=== PATIENT | female | born 1975 | race African-American/Black ===

== ENCOUNTER 2016-09-17 17:53 | Emergency (ER) | payer OTHER ==
[2016-09-17 17:57] VITALS: BP 143/88; BMI 33.3
--- NOTE | 2016-09-17 18:23 | DR.GENAD ---
HPI - PCP Primary Care Physician: SULEMAN - HPI Comment HPI Comment: PATIENT IS WHO IS 29 WEEKS PRESENT TO ED BECAUSE SHE IS NOT FEELING MOVEMENT ALL DAY LONG. HAVE BLADDER PRESSURE BUT NO PAIN OR VAGINAL DISCHARGE OR BLEEDING. SHE WAS RECENTLY IN [facility] FOR EVALUATION. BABY WAS POSITIVE FOR DOWN SYNDROME. NO OTHER PROBLEMS WERE NOTED. MOVEMENT STOP TODAY SUDDENLY TODAY. - Complaint/Symptoms Chief Complaint Doctors Comments: NO MOVEMENT FELT TODAY. Chief Complaint:: PT. STATES SHE IS 6 MONTHS AND SHE HASN'T FELT HER BABY MOVE ALL DAY. PT. STATES SHE CAN FEEL SOMETHING "BALLING UP" BUT THE BABY ISN'T KICKING. PT. DENIES PAIN, VAGINAL BLEEDING, OR SPOTTING. - Nurses notes reviewed Nurses Notes Review: Yes - Source History Provided: Patient - Mode of Arrival Mode of Arrival: Ambulatory - Timing Onset of Chief Complaint: 09/17/16 Came on: Suddenly - Duration Duration: Constant Duration: Hours - Severity Severity: Moderate PMH - PMH Past Medical History: Yes Past Medical History: Hypertension Past Surgical History: No Surgical History: No History - Family History History of Family Medical Conditions: Yes Family Medical History: Diabetes Mellitus, Hypertension - Social History Does patient currently use any type of tobacco product: No Have you used tobacco products in the last 12 months: No Type of Tobacco Use: None Does any household member use tobacco: No Alcohol Use: None Do you use any recreational Drugs:: No Lives With: Family Lives Where: Home - infectious screening In the last 2 months have you had wt loss of >10#?: NO Have you had fever, night sweats or hemotysis?: No Have you traveled outside the country in the last 6 months?: No Isolation: Standard ROS - Review of Systems Constitutional: No Symptoms Reported Eyes: No Symptoms Reported ENTM: No Symptoms Reported Respiratoy: No Symptoms Reported Cardiovascular: No Symptoms Reported Gastrointestinal/Abdominal: Other (NO MOVEMENT FELT TODAY.) Genitourinary: Other (BLADDER PRESSURE) Neurological: No Symptoms Reported Musculoskeletal: No Symptoms Reported Integumentary: No Symptoms Reported Hematologic/Lymphatic: No Symptoms Reported Endocrine: No Symptoms Reported All Other Systems: Reviewed and Negative PE - Vital Signs Vitals: Temperature 98.1 F Pulse Rate 95 Respiratory Rate 16 Blood Pressure 143/88 O2 Sat by Pulse Oximetry 100 - General Limitations: No Limitations General Appearance: Alert - Head Head Exam: Normal Inspection - Eyes Eye exam: Normal Appearance - ENT ENT Exam: Normal External Ear Exam External Ear Exam: Normal External Inspection TM/Canal Exam: Bilateral Normal Nose Exam: Normal Nose Exam Mouth Exam: Normal Inspection Throat Exam: Normal Inspection - Neck Neck Exam: Trachea Midline - Respiratory Respiratory Exam: Normal Lung Sounds Bilat Respiratory Exam: Bilateral Clear to Auscultation - Cardiovascular Cardiovascular Exam: Regular Rate, Normal Rhythm, Normal Heart Sounds - Abdominal Exam Abdominal Exam: Normal Bowel Sounds, Soft. negative: Tenderness Abdominal Tenderness: Other (FHT ABSENT.) - Extremities Extremities Exam: Normal Inspection - Back Back Exam: Normal Inspection - Neurologic Neurological Exam: Alert, Oriented X3 - Psychiatric Psychiatric Exam: Anxious - Skin Skin Exam: Normal Color MDM - Additional Information Additional Information Obtained From: Family - Differential Diagnosis Differential Diagnosis: DEMISE, MISCARRIAGE Course - Treatment Treatment: SEE ORDERS - Consultation Consultation Comments: DR. MELENDEZ DISCUSS PATIENT WITH NURSE. PATIENT TO BE DISCHARGE HOME AND RETURN IN AM FOR LABOR INDUCTION. - Education/Counseling Education/Counseling: Patient, Family Educated On: Diagnosis, Needs for Follow Up ROR - Labs Reviewed Laboratory Results Reviewed?: Yes Result Diagrams: 09/17/16 20:55 09/17/16 20:55 Laboratory: WBC 9.2 X10^3/uL (3.6-10.0) 09/17/16 20:55 RBC 4.12 X10^6/uL (3.5-5.4) 09/17/16 20:55 Hgb 10.7 g/dL (12.0-16.0) L 09/17/16 20:55 Hct 33.2 % (36.0-47.0) L 09/17/16 20:55 MCV 80.6 fL (80.0-100.0) 09/17/16 20:55 MCH 26.0 pg (27.0-34.0) L 09/17/16 20:55 MCHC 32.2 g/dL (33.0-35.0) L 09/17/16 20:55 RDW 14.7 % (11.6-16.5) 09/17/16 20:55 Plt Count 270 X10^3/uL (150.0-450.0) 09/17/16 20:55 MPV 7.6 fL (7.4-11.0) 09/17/16 20:55 Neut % 70.8 % (42.0-75.0) 09/17/16 20:55 Lymph % 21.6 % (21.0-51.0) 09/17/16 20:55 [place] % 6.1 % (0.0-13.0) 09/17/16 20:55 Eos % 1.3 % (0.9-2.9) 09/17/16 20:55 Baso % 0.2 % (0.2-1.0) 09/17/16 20:55 Neut # 6.5 x10^3/uL (2.2-4.8) H 09/17/16 20:55 Lymph # 2.0 X10^3/uL (1.3-2.9) 09/17/16 20:55 [place] # 0.6 x10^3/uL (0.3-0.8) 09/17/16 20:55 Eos # 0.1 x10^3/uL (0.0-0.2) 09/17/16 20:55 Baso # 0.0 X10^3/uL (0.0-0.1) 09/17/16 20:55 Absolute Nucleated RBC 0.1 /100WBC 09/17/16 20:55 Sodium 139 mmol/L (136-145) 09/17/16 20:55 Corrected Sodium TNP 09/17/16 20:55 Potassium 3.9 mmol/L (3.5-5.1) 09/17/16 20:55 Chloride 106 mmol/L (98-107) 09/17/16 20:55 Carbon Dioxide 24.4 mmol/L (21-32) 09/17/16 20:55 BUN 4 mg/dL (7-18) L 09/17/16 20:55 Creatinine 0.50 mg/dL (0.55-1.02) L 09/17/16 20:55 Est GFR (MDRD) Af Amer > 60 (>60) 09/17/16 20:55 Est GFR (MDRD) Non-Af > 60 (>60) 09/17/16 20:55 Glucose 75 mg/dL (65-99) 09/17/16 20:55 Calcium 8.9 mg/dL (8.5-10.1) 09/17/16 20:55 Specimen Type Clean catch urine 09/17/16 18:08 Urine Color Pale yellow (YELLOW) 09/17/16 18:08 Urine Appearance Clear (CLEAR) 09/17/16 18:08 Urine pH 7.0 (5.0 - 8.0) 09/17/16 18:08 Ur Specific [place] 1.010 (1.000-1.030) 09/17/16 18:08 Urine Protein Negative (NEGATIVE) 09/17/16 18:08 Urine Glucose (UA) Negative (NEGATIVE) 09/17/16 18:08 Urine Ketones Negative (NEGATIVE) 09/17/16 18:08 Urine Occult Blood Negative (NEGATIVE) 09/17/16 18:08 Urine Nitrite Negative (NEGATIVE) 09/17/16 18:08 Urine Bilirubin Negative (NEGATIVE) 09/17/16 18:08 Urine Urobilinogen Normal (NORMAL) 09/17/16 18:08 Ur Leukocyte Esterase Negative (NEGATIVE) 09/17/16 18:08 Urine RBC None seen /HPF (NEGATIVE) 09/17/16 18:08 Urine WBC None seen /HPF (NEGATIVE) 09/17/16 18:08 Ur Squamous Epith Cells Moderate /HPF (NEGATIVE) 09/17/16 18:08 Urine Bacteria Trace /HPF (NEGATIVE) 09/17/16 18:08 Ur Culture Indicated? No/not indicated 09/17/16 18:08 RPR Nonreactive (NONREACTIVE) 09/17/16 20:55 Blood Type O POSITIVE 09/17/16 20:55 Antibody Screen Negative 09/17/16 20:55 - XRAY XRAY Interpreted by: Radiologist XRAY Findings: REPORT DISCUSS WITH PATIENT. - Diagnosis Discharge Problem: Miscarriage, demise - Discharge Plan Condition: Stable - Follow ups/Referrals Follow ups/Referrals: SIMRAN SHELL [Primary Care Provider] - 1 day - Instructions Instructions: Miscarriage, [id number], Abdominal or Pelvic Ultrasound, Easy- to-Read, Pelvic Rest Additional Instructions: RETURN IN AM.
[2016-09-17 18:32] LABS: BILIRUBIN,URINE NEGATIVE (NEGATIVE); BLOOD/HEMOGLOBIN,URINE NEGATIVE (NEGATIVE); GLUCOSE, URINE NEGATIVE (NEGATIVE); KETONES,URINE NEGATIVE (NEGATIVE); LEUKOCYTE ESTERASE ,URINE NEGATIVE (NEGATIVE); NITRITES,URINE NEGATIVE (NEGATIVE); PROTEIN,URINE NEGATIVE (NEGATIVE); UROBILINOGEN,URINE NORMAL (NORMAL)
[2016-09-17 18:39] LABS: APPEARANCE,URINE CLEAR (CLEAR); BACTERIA,URINE TRACE /HPF (NEGATIVE); COLOR,URINE PALE YELLOW (YELLOW); RBC,URINE NONE SEEN /HPF (NEGATIVE); SQUAMOUS EPITHELIAL CELL,UR MODERATE /HPF (NEGATIVE)
--- NOTE | 2016-09-17 19:14 | US ---
HISTORY: viability Study: Ob sonogram, limited Comparison: None Technique: Multiple grayscale sonographic images were obtained. Findings: There is a single intrauterine gestation in vertex presentation. The placenta is fundal and posterio r. Biparietal diameter 6.7 centimeters corresponding to 27 weeks. Head circumference 25.24 centimeters corresponding to 's 27 weeks 3 days. Abdominal circumference 21.4 centimeters corresponding to 25 we eks 6 days. Femur length 4.76 centimeters corresponding to 25 weeks 6 days. No heart motion is identified. No motion is identified. IMPRESSION: Single intrauterine gestation 26 weeks 4 days +/-1 week gestational age demonstrating no heart tones or movements. Intrauterine demise is suspected. Reported By:
[2016-09-17 21:08] LABS: BASOPHILS % (AUTO) 0.2 % (0.2-1.0); EOSINOPHILS # (AUTO) 0.1 x10^3/uL (0.0-0.2); EOSINOPHILS % (AUTO) 1.3 % (0.9-2.9); HEMATOCRIT 33.2 % (36.0-47.0); HEMOGLOBIN 10.7 g/dL (12.0-16.0); LYMPHOCYTES % (AUTO) 21.6 % (21.0-51.0); MEAN CORPUSCULAR HGB CONC 32.2 g/dL (33.0-35.0); MEAN CORPUSCULAR VOLUME 80.6 fL (80.0-100.0); MEAN PLATELET VOLUME 7.6 fL (7.4-11.0); MONOCYTES # (AUTO) 0.6 x10^3/uL (0.3-0.8); MONOCYTES % (AUTO) 6.1 % (0.0-13.0); NEUTROPHILS # (AUTO) 6.5 x10^3/uL (2.2-4.8); NEUTROPHILS % (AUTO) 70.8 % (42.0-75.0); PLATELET COUNT 270 X10^3/uL (150.0-450.0); RED BLOOD COUNT 4.12 X10^6/uL (3.5-5.4); RED CELL DISTRIBUTION WIDTH 14.7 % (11.6-16.5); WHITE BLOOD COUNT 9.2 X10^3/uL (3.6-10.0)
[2016-09-17 21:15] LABS: BLOOD UREA NITROGEN 4 mg/dL (7-18); CALCIUM 8.9 mg/dL (8.5-10.1); CARBON DIOXIDE 24.4 mmol/L (21-32); CHLORIDE 106 mmol/L (98-107); GLUCOSE 75 mg/dL (65-99); SODIUM 139 mmol/L (136-145); eGFR BLACK RACES > 60 (>60); eGFR NON BLACK RACES > 60 (>60)
== END 2016-09-17 21:00 | disposition home or self-care (01) ==
LOC: ER 18:02
DX: O03.9 Complete or unspecified spontaneous abortion without complication (principal); O36.4XX1 Maternal care for intrauterine death, fetus 1; Z3A.27 27 weeks gestation of pregnancy
CPT/HCPCS: 36415; 76815; 80048; 81001; 85025; 86592; 86850; 86900; 86901; 99283; 99284

== ENCOUNTER 2016-09-18 06:52 | Inpatient (IN) | payer OTHER ==
[~2016-09-18 06:52] MED LIST: D5 1/2 NS 1000 ML 1,000 ML IV ONE; D5 1/2 NS 1000ML W PITOCIN 20 U/L 1,000 ML IV ONE; D5LR 1000ML W PITOCIN 10 U/L 1,000 ML IV ONE
[2016-09-18] MEDS: D5 1/2 NS 1000 ML 1,000 ML IV SCH ×2 (07:00→09:47)
--- NOTE | 2016-09-18 07:30 | DR.OB ---
OB Quick Note - Assessment/Plan Assessment/Plan: L&D 09/18/16 at 7:15am S-No complaint. O-Afebrile,VSS CTX=none CVX=1cm/thick/high/VTX AROM with clear fluid. IUPC placed. A-IUFD at 27 3/7 weeks for induction with Downs syndrome CHTN AMA P-Begin pitocin induction F/U preeclamptic labs Anticipate
[2016-09-18] MEDS ORDERED: PITOCIN IVP ONE (07:32)
[2016-09-18] MEDS ORDERED: REGLAN INJ 10 MG VIAL IVP PRN ×2 (07:32→15:02)
[2016-09-18] MEDS ORDERED: NUBAIN INJ 200 MG VIAL MULTIDOSE IVP PRN (07:32)
[2016-09-18] MEDS ORDERED: MORPHINE SULFATE INJ 2 MG IVP PRN (07:32)
[2016-09-18] MEDS ORDERED: PHENERGAN INJ 25 MG IV PRN ×3 (07:32→15:02)
[2016-09-18] MEDS ORDERED: PITOCIN 10 UNITS in D5 LR 1000 ML 1,000 ML IV PRN (07:32)
[2016-09-18] MEDS ORDERED: LR 1000 ML IV 1,000 ML IV ONE ×2 (07:56→15:01)
[2016-09-18] MEDS ORDERED: FENTANYL INJ 100 mcg ONE (07:56)
[2016-09-18] MEDS ORDERED: NAROPIN EPIDURAL 0.2% + FENTANYL 90MCG 60 ML EPI ONE ×2 (07:57→12:27)
[2016-09-18 08:01] LABS: URIC ACID 3.5 mg/dL (2.6-6.0)
[2016-09-18] MEDS ORDERED: TYLENOL 325 MG TAB PO ONE (08:36)
[2016-09-18] MEDS ORDERED: TYLENOL 325 MG TAB PO PRN (08:45)
[2016-09-18] MEDS ORDERED: PHENERGAN INJ 25 MG ONE (09:20)
[2016-09-18] MEDS ORDERED: XANAX PO SCH (10:00)
--- NOTE | 2016-09-18 11:59 | DR.OB ---
OB Quick Note - Assessment/Plan Assessment/Plan: L&D 09/18/16 at 11:50am Pitocin=22mu/min. S-No complaint. s/p epidural. O-Afebrile,VSS CTX=q 1 to 1 1/2 min., about 50-65mmHg CVX=2cm/50%/-1/VTX A-IUFD at 27 3/7 weeks for induction with Downs Syndrome CHTN AMA P-Cont. pitocin induction Anticipate
[2016-09-18] MEDS ORDERED: PITOCIN ONE (13:39)
[2016-09-18] MEDS ORDERED: D5 1/2 NS 1000 ML 1,000 ML with PITOCIN 20 UNITS IV SCH ×2 (14:00)
[2016-09-18] MEDS ORDERED: MOTRIN TAB 800 MG PO PRN ×2 (14:00→15:02)
[2016-09-18] MEDS ORDERED: XANAX ONE (14:19)
[2016-09-18] MEDS ORDERED: NAROPIN EPIDURAL 0.2% 97 ML with FENTANYL INJ 250 mcg 150 MCG EPI PRN ×2 (15:01)
[2016-09-18] MEDS ORDERED: MILK OF MAGNESIA PO PRN (15:02)
[2016-09-18] MEDS ORDERED: AMBIEN PO PRN (15:02)
[2016-09-18] MEDS ORDERED: DERMOPLAST SPRAY TOP PRN (15:02)
[2016-09-18] MEDS ORDERED: ADACEL TDaP IM ONE (15:02)
--- NOTE | 2016-09-18 15:08 | DR.OB ---
OB Quick Note - Assessment/Plan Assessment/Plan: Delivery Note PRODUCER 13:48 Patient complete with head descending through CVX. Head delivered over intact perineum. No nuchal cord. Body delivered over intact perineum. Cord clamped x 2 and cut. Infant handed to attendant. Placenta delivered manually / intact / 3 vessel cord. No vaginal / perineal / CVX tears. Non-viable female , VTX/OA, wt=1'15", delivered vaginally. No gross abnormalities of or placenta/cord. Mother to RR. ORG=[id number].
[2016-09-18] MEDS ORDERED: FERROUS SULFATE PO SCH (17:00)
[2016-09-18] MEDS: XANAX PO SCH ×2 (18:00→21:18)
[2016-09-18] MEDS ORDERED: NORMODYNE TAB 100 MG PO SCH (21:00)
[2016-09-18] MEDS: ZANTAC PO SCH (21:20)
[2016-09-18] MEDS: D5 1/2 NS 1000 ML 1,000 ML with PITOCIN 20 UNITS IV SCH ×2 (21:21)
[2016-09-19] MEDS: XANAX PO SCH ×3 (04:08→11:01)
[2016-09-19 05:46] LABS: HEMATOCRIT 29.7 % (36.0-47.0); HEMOGLOBIN 9.7 g/dL (12.0-16.0)
[2016-09-19] MEDS: D5 1/2 NS 1000 ML 1,000 ML with PITOCIN 20 UNITS IV SCH ×2 (06:41)
[2016-09-19] MEDS: ZANTAC PO SCH (08:47)
[2016-09-19] MEDS ORDERED: PRENATAL PLUS PO SCH (09:00)
[2016-09-19 10:52] VITALS: BP 127/72
== END 2016-09-19 16:55 | disposition home or self-care (01) | DRG 774 ==
LOC: LD 06:54 → MED/SURG 16:13
PROVIDERS: ADMIT Specialist; ATTEND Specialist
PROC: 10E0XZZ Delivery of Products of Conception, External Approach (ICD-10-PCS; principal; 2016-09-18)
PROC: 10907ZC Drainage of Amniotic Fluid, Therapeutic from Products of Conception, Via Natural or Artificial Opening (ICD-10-PCS; 2016-09-18)
PROC: 3E033VJ Introduction of Other Hormone into Peripheral Vein, Percutaneous Approach (ICD-10-PCS; 2016-09-18)
PROC: 3E0234Z Introduction of Serum, Toxoid and Vaccine into Muscle, Percutaneous Approach (ICD-10-PCS; 2016-09-18)
PROC: 00HU33Z Insertion of Infusion Device into Spinal Canal, Percutaneous Approach (ICD-10-PCS; 2016-09-18)
DX: O36.4XX0 Maternal care for intrauterine death, not applicable or unspecified (principal); Z37.1 Single stillbirth; O09.522 Supervision of elderly multigravida, second trimester; Z3A.27 27 weeks gestation of pregnancy; O35.1XX0 Maternal care for (suspected) chromosomal abnormality in fetus, not applicable or unspecified; O10.912 Unspecified pre-existing hypertension complicating pregnancy, second trimester
CPT/HCPCS: 09167; 36415; 59409; 83615; 84450; 84460; 84550; 85014; 85018; 85384; 85610; 85730; A4216; A4222; S0197; J2550; J2590; J3010; J7042; J7120